=== PATIENT | male | born 1930 | race African-American/Black ===

== ENCOUNTER 2016-07-21 10:28 | Inpatient (IN) | payer MEDICARE, BC ==
[~2016-07-21] VITALS: Ht 190.5 cm; Wt 94.8 kg
[~2016-07-21 10:28] MED LIST: ACLI400A2 IH; ASCO500C15 PO; BUDE6.9H IH; CINA30 PO; COR3 PO; FOLI0.8T23 PO; FOLI1TAB63 PO; OMEG-38 PO; SACU1TAB PO; SEVE800T8 PO; [UNRECOGNIZED DRUG - OTHER] PO
[2016-07-21] MEDS ORDERED: MIDAZOLAM HCL 2 MG/2 ML VIAL ONE (13:22)
[2016-07-21] MEDS ORDERED: FENTANYL CITRATE/PF 50MCG/ML 2ML VIAL ONE (13:22)
[2016-07-21] MEDS ORDERED: IODIXANOL 320MG/ML 100 ML BOTTLE IV ONE (13:23)
[2016-07-21] MEDS ORDERED: LIDOCAINE HCL 1% 20ML VIAL (Pyxis) INJ ONE (13:24)
[2016-07-21] MEDS ORDERED: ACETAMINOPHEN 325MG TABLET PO PRN (14:00)
[2016-07-21] MEDS ORDERED: ATROPINE SULFATE 1MG/10ML SYR IV PRN (14:00)
[2016-07-21 14:48] VITALS: BP 114/57
[2016-07-21 15:36] VITALS: BP 110/73
[2016-07-21 16:00] VITALS: BP 111/54
[2016-07-21] MEDS: FOLIC ACID/VITAMIN B COMP W-C TABLET PO SCH (16:27)
[2016-07-21] MEDS: CARVEDILOL 3.125 MG TABLET PO SCH (16:30)
[2016-07-21] MEDS ORDERED: MEDICATION NOT ON FORMULARY EA (Sacubitril/Valsartan (Entresto 24 mg-26 mg Tablet) 1 EAC PO SCH (17:00)
[2016-07-21] MEDS ORDERED: ACLIDINIUM BROMIDE IH SCH (17:00)
[2016-07-21] MEDS ORDERED: MEDICATION NOT ON FORMULARY EA (Budesonide/Formoterol Fumarate (Symbicort 80/4.5 Mcg Inh IH SCH (17:00)
[2016-07-21 18:00] VITALS: BP 109/62
[2016-07-21] MEDS: SEVELAMER CARBONATE 800 MG TABLET PO SCH (18:06)
[2016-07-21 20:00] VITALS: BP_SYST 94; BP_SYST 96; BP_DIAS 50; BP_DIAS 61
[2016-07-21 22:00] VITALS: BP 101/52
[2016-07-22] VITALS (10 sets, daily range): BP systolic 93–114; BP diastolic 47–60
[2016-07-22] MEDS: IPRATROPIUM/ALBUTEROL 0.5-3(2.5)MG/3ML NEB HHN SCH ×2 (01:33→08:54)
[2016-07-22] MEDS: BUDESONIDE 0.5MG/2ML NEB HHN SCH ×2 (01:34→08:54)
[2016-07-22 06:39] LABS: BASOPHILS % 0.9 % (0.0-2.0); EOSINOPHILS % 4.9 % (0.0-5.0); HEMATOCRIT. 35.8 % (42.0-52.0); HEMOGLOBIN. 11.3 g/dL (14.0-18.0); LYMPHOCYTES % 13.5 % (20.0-50.0); MEAN CORPUSCULAR HEMOGLOBIN 27.5 pg (28.0-32.0); MEAN CORPUSCULAR HGB CONC 31.5 g/dL (31.0-37.0); MEAN CORPUSCULAR VOLUME 87.5 fL (80.0-94.0); MEAN PLATELET VOLUME 8.9 fl (7.4-10.4); MONOCYTES % 13.5 % (2.0-8.0); NEUTROPHILS % 67.2 % (40.0-76.0); PLATELET 79 x1000/uL (130-400); RED CELL DISTRIBUTION WIDTH 24.1 % (11.6-14.6)
[2016-07-22 06:53] LABS: CALCIUM 8.1 mg/dL (8.5-10.1)
[2016-07-22 07:28] LABS: DIFFERENTIAL COMMENT 1
[2016-07-22] MEDS: CARVEDILOL 3.125 MG TABLET PO SCH (08:19)
[2016-07-22] MEDS: SEVELAMER CARBONATE 800 MG TABLET PO SCH (08:19)
[2016-07-22] MEDS: FOLIC ACID/VITAMIN B COMP W-C TABLET PO SCH (08:19)
[2016-07-22] MEDS ORDERED: CINACALCET HCL 30MG TABLET PO SCH (09:00)
== END 2016-07-22 16:30 | disposition home or self-care (01) | DRG 299 ==
LOC: CCL 10:28 → 3WST 10:29
PROVIDERS: ADMIT Specialist; ATTEND Specialist
PROC: B41FYZZ Fluoroscopy of Right Lower Extremity Arteries using Other Contrast (ICD-10-PCS; principal; 2016-07-21)
PROC: 5A1D00Z (ICD-10-PCS; 2016-07-22)
DX: I73.9 Peripheral vascular disease, unspecified (principal); N18.6 End stage renal disease; I13.2 Hypertensive heart and chronic kidney disease with heart failure and with stage 5 chronic kidney disease, or end stage renal disease; I50.22 Chronic systolic (congestive) heart failure; L97.419 Non-pressure chronic ulcer of right heel and midfoot with unspecified severity; D69.6 Thrombocytopenia, unspecified; I25.10 Atherosclerotic heart disease of native coronary artery without angina pectoris; I25.5 Ischemic cardiomyopathy; I27.2 Other secondary pulmonary hypertension; I48.2 Chronic atrial fibrillation; I99.8 Other disorder of circulatory system; J44.9 Chronic obstructive pulmonary disease, unspecified; N40.0 Benign prostatic hyperplasia without lower urinary tract symptoms; Z86.73 Personal history of transient ischemic attack (TIA), and cerebral infarction without residual deficits; Z91.81 History of falling; I25.2 Old myocardial infarction; Z95.5 Presence of coronary angioplasty implant and graft; Z95.810 Presence of automatic (implantable) cardiac defibrillator; Z99.2 Dependence on renal dialysis; Z99.81 Dependence on supplemental oxygen
CPT/HCPCS: 36247; 36415; 75710; 80048; 85025; 94664; C1760; C1769; C1893; J1644; J2250; J3010; J3490; J7030; J7620; J7626; Q9967